=== PATIENT | female | born 2000 | race Caucasian/White ===

== ENCOUNTER 2022-04-13 09:25 | Outpatient (CLI) | payer SELFPAY ==
[2022-04-13 11:18] VITALS: BP 132/71; PULSE 74; RESP 18; O2SAT 99
[2022-04-13 11:32] VITALS: BP 130/71; PULSE 68; RESP 18; O2SAT 99
== END 2022-04-13 11:32 | disposition home or self-care (01) ==
LOC: LAB 09:26 → INF 11:18
PROVIDERS: Visit Provider Obstetrics & Gynecology
DX: Z34.90 Encounter for supervision of normal pregnancy, unspecified, unspecified trimester (principal)
CPT/HCPCS: 36415; 96372; J2790

== ENCOUNTER 2022-05-15 11:20 | Outpatient (CLI) | payer SELFPAY ==
[2022-05-15 13:35] VITALS: BP 111/82; PULSE 81; RESP 18; O2SAT 100
== END 2022-05-15 13:35 | disposition home or self-care (01) ==
LOC: LAB 12:04 → INF 14:01
PROVIDERS: PCP Nurse Practitioner Family; Visit Provider Obstetrics & Gynecology
DX: O26.899 Other specified pregnancy related conditions, unspecified trimester (principal); Z67.91 Unspecified blood type, Rh negative
CPT/HCPCS: 36415; 85461; 96372; J2790

== ENCOUNTER 2023-03-23 17:11 | Emergency (ER) | payer SELFPAY ==
[2023-03-23 17:12] VITALS: BP 110/71; PULSE 104; RESP 16; TEMP 36.6; O2SAT 100; BMI 19.5
--- NOTE | 2023-03-23 17:20 | US_ITS ---
PROCEDURE INFORMATION: Exam: US , Transvaginal Exam date and time: 03/23/2023 5:59 PM Age: 22 years old Clinical indication: Lmp or gestational age (in weeks): 10w6d; Antepartum complications; Bleeding; ; Additional info: , no US, pain, bleeding TECHNIQUE: Imaging protocol: Real-time transvaginal obstetrical ultrasound of the maternal pelvis with image documentation. Transvaginal imaging was used for better evaluation of the fetus, adnexa, and/or cervix. COMPARISON: No relevant prior studies available. FINDINGS: Gestation: Single intrauterine gestation. [place]-rump length measures 2.1 cm. Yolk sac visualized. Placenta: Moderate subchorionic hemorrhage measuring 2.6 x 3.8 x 5.9 cm a smaller 2nd collection measuring 1.5 x 1.4 cm. BIOMETRY: Gestational age (AUA): 8 weeks 6 days MATERNAL: Right ovary/adnexa: Unremarkable. Left ovary/adnexa: Unremarkable. Corpus luteum. Intraperitoneal space: Minimal free fluid. IMPRESSION: 1. Single intrauterine measuring 8 weeks 6 days. 2. Moderate subchorionic hemorrhage with the largest collection measuring 2.6 x 3.8 x 5.9 cm.
[2023-03-23 17:30] VITALS: BP 110/71; PULSE 100; O2SAT 99
--- NOTE | 2023-03-23 18:00 | HMH.EDGENADL ---
Discharge Plan Disposition Patient Disposition: Home, Self-Care Condition: Good Prescriptions Prescriptions: No Action prenat.vits,bertha,url-[id number] Tablet 1 tab PO DAILY Referrals Follow up/Referrals: Cm Arteaga APRN [Primary Care Provider] - See instructions Activity Restrictions/Add. Instructions Additional Instructions/Restrictions: You were evaluated in the emergency department today. Your fetus is measuring 8 weeks and 5 days. Your hCG is 196,900. Your blood type is A+. You were given RhoGAM today. Please follow-up outpatient for further evaluation and management. Return to the emergency department for new or worsening symptoms. I encouraged pelvic rest as we discussed. Clinical Impressions Clinical Impression: Subchorionic hematoma, Vaginal bleeding during Instructions Patient Instructions: DI for Vaginal Bleeding During Discharge ED Provider: Kitty Noel General Adult HPI General Chief complaint: Vaginal Bleeding Stated complaint: 7 weeks , vaginal bleeding Time Seen by Provider: 03/23/23 17:19 Mode of Arrival: Ambulatory Source of Information: Patient and Spouse Limitations: No Limitations Description of Symptoms (Recalled from ER Triage Doc. by RN): 22 yo F presents to ED with c/o vaginal bleeding. this is pts second , first pt reports no problems. pt states that she felt a clot pass today, and bleeding became less after this. pt reports minial cramping in lower abdominal History of Present Illness HPI narrative: This patient is a 22-year-old female G2, P1 at estimated 7 weeks gestational age presenting to the emergency department for evaluation with concern for vaginal bleeding and passage of large clots that started today around 11 AM. It is slightly worse than a usual period. She is here with her medical insurance claims specialist and her significant other, who notes that she has had a relatively uncomplicated thus far, however she has not seen OB, she gets all of her care with her medical insurance claims specialist. She denies any recent fevers, lower abdominal pain, dysuria, or other concerns. On medical review, her blood type is A-. She notes that she received RhoGAM with her last . No other concerns at this time. Related Data Home Medications Medication Instructions Recorded Confirmed prenat.vits,bertha,[id number] 1 tab PO DAILY 04/13/22 04/13/22 Allergies Allergy/AdvReac Type Severity Reaction Status Date / Time No Known Allergies Allergy Verified 04/13/22 08:46 PFSH PENDING SALE TO [facility] Disclaimer: The information contained in this section may have been updated after the patient was seen, as this information can be updated by other users. Medical History [facility] [place] Social History Smoking Status: Never smoker alcohol intake: never current occupational status: other Travel in the last 8 weeks: None ROS Obtained: Yes All systems reviewed & no additional complaints except as documented Physical Exam General General appearance: alert and in no apparent distress Head Head exam: atraumatic and normocephalic Eye Eye exam: Present normal appearance, PERRL and EOMI ENT ENT exam: Present normal exam, normal oropharynx, mucous membranes moist and normal external ear exam Neck Neck exam: Present normal inspection, full ROM and trachea midline; Absent tenderness Chest Chest inspection: Present normal inspection and symmetric chest wall rise; Absent tenderness Respiratory Respiratory exam: Present normal lung sounds bilaterally; Absent respiratory distress, wheezes, stridor or accessory muscle use Cardiovascular Cardiovascular exam: Present regular rate and normal rhythm Abdominal Exam Abdominal exam: Present soft and normal bowel sounds; Absent distention, tenderness, guarding, rebound or rigidity Extremities Exam Extremities exam: Present
[2023-03-23 20:04] VITALS: BP 110/69; PULSE 98; RESP 16; TEMP 36.8; O2SAT 98
== END 2023-03-23 20:05 | disposition home or self-care (01) ==
PROVIDERS: Emergency Provider Emergency Medicine; PCP Nurse Practitioner Family
DX: O46.8X1 Other antepartum hemorrhage, first trimester (principal); Z3A.01 Less than 8 weeks gestation of pregnancy
CPT/HCPCS: 76817; 84702; 96372; 99284; J2790